=== PATIENT | male | born 1960 | race Caucasian/White ===

== ENCOUNTER 2019-11-16 16:56 | Emergency (ER) | payer OTHER ==
[~2019-11-16] VITALS: Ht 182.9 cm; Wt 65.8 kg
[2019-11-16] MEDS ORDERED: XELODA500 MG PO (17:14)
[2019-11-16] MEDS ORDERED: [UNRECOGNIZED DRUG - OTHER] (17:15)
== END 2019-11-16 23:26 | disposition home or self-care (01) ==
LOC: ER 16:56
DX: R53.83 Other fatigue (principal); C18.8 Malignant neoplasm of overlapping sites of colon; C78.00 Secondary malignant neoplasm of unspecified lung; C78.7 Secondary malignant neoplasm of liver and intrahepatic bile duct

== ENCOUNTER 2019-11-17 11:09 | Inpatient (IN) | payer OTHER ==
[~2019-11-17] VITALS: Ht 182.9 cm; Wt 65.8 kg
[~2019-11-17 11:09] MED LIST: XELODA500 MG PO; [UNRECOGNIZED DRUG - OTHER]
== END 2019-11-27 19:05 | disposition home or self-care (01) | DRG 871 ==
LOC: ER 11:09 → SEC-K 20:20 → SURG 20:20 → SURH 11-18 00:02 → SEC-K 11-18 00:20 → SURH 11-19 01:50
PROVIDERS: ADMIT Internal Medicine Hematology & Oncology; ATTEND Internal Medicine Hematology & Oncology
PROC: 8E0ZXY6 Isolation (ICD-10-PCS; 2019-11-17)
PROC: 30233N1 Transfusion of Nonautologous Red Blood Cells into Peripheral Vein, Percutaneous Approach (ICD-10-PCS; 2019-11-18)
PROC: 05HY33Z Insertion of Infusion Device into Upper Vein, Percutaneous Approach (ICD-10-PCS; 2019-11-18)
PROC: 0W9G3ZZ Drainage of Peritoneal Cavity, Percutaneous Approach (ICD-10-PCS; principal; 2019-11-19)
DX: A41.50 Gram-negative sepsis, unspecified (principal); R57.1 Hypovolemic shock; C18.9 Malignant neoplasm of colon, unspecified; C78.7 Secondary malignant neoplasm of liver and intrahepatic bile duct; C78.00 Secondary malignant neoplasm of unspecified lung; E87.1 Hypo-osmolality and hyponatremia; A09 Infectious gastroenteritis and colitis, unspecified; B37.0 Candidal stomatitis; R18.8 Other ascites; E44.0 Moderate protein-calorie malnutrition; J22 Unspecified acute lower respiratory infection; E87.6 Hypokalemia; D63.0 Anemia in neoplastic disease; A03.8 Other shigellosis; R29.898 Other symptoms and signs involving the musculoskeletal system; K30 Functional dyspepsia; N18.3 Chronic kidney disease, stage 3 (moderate); K76.1 Chronic passive congestion of liver; D72.828 Other elevated white blood cell count